=== PATIENT | male | born 1960 | race African-American/Black ===

== ENCOUNTER 2017-01-11 13:00 | Emergency (ER) | payer OTHER ==
[2017-01-11 14:16] LABS: BASOPHIL 0.3 % (0-2); HCT 40.4 % (42.0-52.0); HGB 13.7 g/dl (13.2-18.0); LYMPHOCYTE 24.6 % (15-48); MCH 31.4 pg (25.0-31.0); MCHC 33.9 g/dL (32.0-36.0); MCV 92.7 fL (78.0-100.0); MONOCYTE 9.1 % (0-12); MPV 8.9 fL (6.0-9.5); PLT 381 K/uL (150-400); RBC 4.36 M/uL (4.70-6.00); RDW 12.4 % (11.5-14.0); WBC 6.1 K/uL (4.0-10.5)
[2017-01-11 14:34] LABS: BILIRUBIN - TOTAL 0.3 mg/dL (0.1-1.0); CKMB 4.46 ng/mL (0.97-4.94); CREATININE 0.8 mg/dL (0.7-1.2); GLOBULIN (CALCULATION) 2.7 g/dL (2.2-4.2); POTASSIUM 3.9 mmol/L (3.5-5.1); TOTAL PROTEIN 7.7 g/dL (6.4-8.3); TROPONIN T < 0.010 ng/mL
== END 2017-01-11 15:30 | disposition home or self-care (01) ==
LOC: FER 13:00
PROVIDERS: Nurse Practitioner Family
DX: J20.9 Acute bronchitis, unspecified (principal); I10 Essential (primary) hypertension; K21.9 Gastro-esophageal reflux disease without esophagitis; F17.210 Nicotine dependence, cigarettes, uncomplicated
CPT/HCPCS: 36415; 71020; 74020; 80053; 82550; 82553; 84484; 85025; 93005

== ENCOUNTER 2020-11-12 10:21 | Emergency (ER) | payer OTHER ==
[~2020-11-12 10:21] MED LIST: BACLOFEN 10MG T10 MG PO; INDOCIN25 MG PO; LISINOPRIL 10MG10 MG PO; NAPROXEN500 MG PO; PRILOSEC20 MG PO
[2020-11-12 11:46] LABS: BASOPHIL 0.5 % (0-2); EOSINOPHIL 1.3 % (0-5); HCT 42.3 % (42.0-52.0); HGB 13.6 g/dl (13.2-18.0); LYMPHOCYTE 27.8 % (15-48); MCH 30.5 pg (25.0-31.0); MCHC 32.2 g/dL (32.0-36.0); MCV 94.8 fL (78.0-100.0); MONOCYTE 10.7 % (0-12); MPV 9.2 fL (6.0-9.5); NEUTROPHIL 59.5 % (41-80); NRBC 0; PLT 323 K/uL (150-400); RBC 4.46 M/uL (4.70-6.00); RDW 12.5 % (11.5-14.0); WBC 6.3 K/uL (4.0-10.5)
[2020-11-12 12:07] LABS: PRO-BNP 22 pg/mL (<125)
[2020-11-12 12:17] LABS: ALBUMIN 3.8 g/dL (3.4-5.0); BILIRUBIN - TOTAL 0.4 mg/dL (0.2-1.0); BUN/CREAT RATIO (CALC) 18.6 RATIO; C-REACTIVE PROTEIN 0.2 mg/dL (<=0.90); CREATININE 1.02 mg/dL (0.67-1.17); GLOBULIN (CALCULATION) 3.8 g/dL; POTASSIUM 4.1 mmol/L (3.5-5.1); TOTAL PROTEIN 7.6 g/dL (6.4-8.2)
[2020-11-12] MEDS ORDERED: MUCINEX 600MG600 MG PO (12:54)
== END 2020-11-12 15:02 | disposition home or self-care (01) ==
LOC: FER 10:21
PROVIDERS: Emergency Medicine
DX: B34.9 Viral infection, unspecified (principal); I10 Essential (primary) hypertension; F17.210 Nicotine dependence, cigarettes, uncomplicated; Z20.822 Contact with and (suspected) exposure to COVID-19
CPT/HCPCS: 36415; 71045; 80053; 82728; 83880; 84145; 84484; 85025; 86140; U0002

== ENCOUNTER 2022-05-16 08:04 | Emergency (ER) | payer OTHER ==
[~2022-05-16 08:04] MED LIST changes: +MUCINEX 600MG600 MG PO
[2022-05-16 09:24] LABS: BASOPHIL 0.2 % (0-2); EOSINOPHIL 0.2 % (0-5); HCT 40.7 % (42.0-52.0); HGB 13.5 g/dl (13.2-18.0); LYMPHOCYTE 13.8 % (15-48); MCH 30.7 pg (25.0-31.0); MCHC 33.2 g/dL (32.0-36.0); MCV 92.5 fL (78.0-100.0); MONOCYTE 11.7 % (0-12); MPV 9.6 fL (6.0-9.5); NEUTROPHIL 73.8 % (41-80); NRBC 0; PLT 296 K/uL (150-400); RDW 12.8 % (11.5-14.0); WBC 12.4 K/uL (4.0-10.5)
[2022-05-16 10:05] LABS: BILIRUBIN - TOTAL 1.1 mg/dL (0.2-1.0); BUN/CREAT RATIO (CALC) 17.8 RATIO; C-REACTIVE PROTEIN 2.9 mg/dL (<=0.90); CREATININE 0.9 mg/dL (0.67-1.17); POTASSIUM 3.5 mmol/L (3.5-5.1); URIC ACID 7.4 mg/dL (3.5-7.2)
[2022-05-16] MEDS ORDERED: INDOCIN25 MG PO (11:23)
[2022-05-16] MEDS ORDERED: MEDROL 4MG DOSEP4 MG PO (11:23)
[2022-05-16] MEDS ORDERED: NORCO 5-325 TA1 EACH PO (11:23)
== END 2022-05-16 11:45 | disposition home or self-care (01) ==
LOC: FER 08:04
PROVIDERS: Emergency Medicine
DX: M10.9 Gout, unspecified (principal); I10 Essential (primary) hypertension; F17.210 Nicotine dependence, cigarettes, uncomplicated; Z20.822 Contact with and (suspected) exposure to COVID-19
CPT/HCPCS: 36415; 73110; 80053; 84550; 85025; 86140; J2405; J2930; J3010; U0002